=== PATIENT | male | born 1945 | race Caucasian/White ===

== ENCOUNTER 2017-05-14 08:24 | Emergency (ER) | payer OTHER ==
[~2017-05-14] VITALS: Ht 180.3 cm; Wt 75.7 kg
[~2017-05-14 08:24] MED LIST: ACET500T57 PO; ASPI81TA57 PO; ATOR-26 PO; CALC625T4 PO; CRD200 PO; GLC/500 PO; LSN40 PO; OMEP20CA9 PO; WARF5TAB90 PO
[2017-05-14 08:28] VITALS: TEMP 36.6; O2SAT 100; Ht 180.3 cm; Wt 75.7 kg
[2017-05-14] MEDS ORDERED: AMIO0.1T PO (08:35)
[2017-05-14] MEDS ORDERED: ASPI81TA28 PO (08:35)
[2017-05-14] MEDS ORDERED: SODIUM CHLORIDE 0.9% 1000ML 1,000 ML IV STA (08:47)
--- NOTE | 2017-05-14 08:54 | EMERGENCY ROOM VISIT NOTE ---
History First contact with patient: 08:37 Chief Complaint: SYNCOPE Stated Complaint: SYNCOPE Nursing Triage Summary: Pt arrives via ALS. Pt was standing in line for food at [facility], had a syncopal event with fall to the floor. Denies injury. Pt did not eat yet nor have his a.m. medications. Hx of Afib. BSG 93. The [facility] did orthostats with laying of BP 104/50, HR 60, sit BP 98/55 HR 62, stand BP 72/46 HR 63. Denies complaints of headache or dizziness. History of Present Illness The patient is a 72 year old male who presents to the Emergency Room from [facility] with complaints of a syncopal episode this morning about 7 AM. Patient was standing in line for breakfast when the episode occurred, he states he felt dizzy and then started to fall to the floor and one of his friends caught him. He denies hitting his head or any injury. He does state that he lost consciousness for a few seconds, no seizure-like activity. Patient has not had anything to eat and has not taken his mooring medications. He is a diabetic, reported blood sugar of 93 at the [facility]. They also noted orthostatic hypotension at the [facility], which is why he was sent to the emergency department. Patient denies any recent fevers or chills or any other illness, denies nausea or vomiting, diarrhea, abdominal pain, chest pain, shortness of breath, palpitations. Review of Systems A complete 10 point review of systems was reviewed with the patient with pertinent positives and negatives as per history of present illness. All else were negative. Past Medical/Surgical History Medical Problems: (1) Diabetes Family History FH: heart disease Social History Smoking Status: Current Every Day Smoker Alcohol Use: none Drug Use: none Marital Status: single Housing Status: other Occupation Status: unemployed Current/Historical Medications Scheduled Acetaminophen (Acetaminophen), 1,000 MG PO TID Amiodarone Hcl (Amiodarone Hcl), 100 MG PO DAILY Aspirin (Aspirin Ec), 81 MG PO DAILY Atorvastatin (Lipitor), 80 MG PO HS Lisinopril (Lisinopril), 40 MG PO DAILY Metformin Hcl (Glucophage), 500 MG PO BID Omeprazole (Prilosec), 20 MG PO DAILY Warfarin Sodium (Coumadin), 5 MG PO HS Physical Exam Vital Signs Date Time Temp Pulse Resp B/P (MAP) Pulse Ox O2 Delivery O2 Flow Rate FiO2 05/14/17 12:57 78 17 152/82 99 05/14/17 11:39 05/14/17 11:32 60 17 157/74 99 64 167/78 78 152/82 05/14/17 09:51 62 15 140/71 99 Room Air 05/14/17 08:39 58 05/14/17 08:28 100 Room Air 05/14/17 08:28 36.6 57 13 141/80 100 Room Air Physical Exam CONSTITUTIONAL: No acute distress. Dehydrated. Well appearing and well nourished. Alert and oriented X 4 with normal affect. HEENT: Normocephalic, atraumatic. Pupils equal, round and reactive to light, EOMI. TMs normal. Pharynx normal. Dry mucous membranes. Poor dentition. NECK: Supple, full active range of motion without discomfort. RESPIRATORY: Clear to auscultation bilaterally with no wheezing, crackles, rhonchi or stridor. Equal expansion bilaterally. CARDIOVASCULAR: Regular rate and rhythm with no murmurs, rubs or gallops. Normal peripheral perfusion. No edema. GASTROINTESTINAL: Soft, nontender, nondistended. Bowel sounds present in all quadrants. MUSCULOSKELETAL: Full range of motion of all joints without discomfort. INTEGUMENTARY: No rash or other significant dermatologic conditions noted. NEUROLOGIC: Cranial nerves II-XII grossly intact. No focal neurologic deficits noted. Medical Decision & Procedures ER Provider Diagnostic Interpretation: CHEST ONE VIEW PORTABLE CLINICAL HISTORY: 72 years-old Male presenting with EVALUATE ALTERED MENTAL STATUS/WEAKNESS. TECHNIQUE: Portable upright AP view of the chest was obtained. COMPARISON: 09/25/2015. FINDINGS: Atherosclerosis of aortic arch. Cardiac silhouette normal in size. Lungs and pleural spaces clear. Degenerative changes of the spine. Radiodensity projecting over the right axilla not clearly present on prior exam and of uncertain etiology. Upper abdomen normal. IMPRESSION: 1. No acute cardiopulmonary disease. 2. Radiodensity projecting over the right axilla not clearly present on prior exam or this may be external to the patient. Correlate clinically. Laboratory Results 05/14/17 09:07 Red Blood Count 4.32, Mean Corpuscular Volume 91.4, Mean Corpuscular Hemoglobin 31.0, Mean Corpuscular Hemoglobin Concent 33.9, Mean Platelet Volume 10.1, Neutrophils (%) (Auto) 82.6, Lymphocytes (%) (Auto) 9.8, Monocytes (%) (Auto) 5.7, Eosinophils (%) (Auto) 1.3, Basophils (%) (Auto) 0.2, Neutrophils # (Auto) 8.63, Lymphocytes # (Auto) 1.02, Monocytes # (Auto) 0.59, Eosinophils # (Auto) 0.14, Basophils # (Auto) 0.02 05/14/17 09:07 Test 05/14/17 08:45 05/14/17 09:07 05/14/17 09:50 Bedside Glucose 90 mg/dl (70-99) White Blood Count 10.44 K/uL (4.8-10.8) Red Blood Count 4.32 M/uL (4.7-6.1) Hemoglobin 13.4 g/dL (14.0-18.0) Hematocrit 39.5 % (42-52) Mean Corpuscular Volume 91.4 fL (80-100) Mean Corpuscular Hemoglobin 31.0 pg (25-34) Mean Corpuscular Hemoglobin Concent 33.9 g/dl (32-36) Platelet Count 292 K/uL (130-400) Mean Platelet Volume 10.1 fL (7.4-10.4) Neutrophils (%) (Auto) 82.6 % Lymphocytes (%) (Auto) 9.8 % Monocytes (%) (Auto) 5.7 % Eosinophils (%) (Auto) 1.3 % Basophils (%) (Auto) 0.2 % Neutrophils # (Auto) 8.63 K/uL (1.4-6.5) Lymphocytes # (Auto) 1.02 K/uL (1.2-3.4) Monocytes # (Auto) 0.59 K/uL (0.11-0.59) Eosinophils # (Auto) 0.14 K/uL (0-0.5) Basophils # (Auto) 0.02 K/uL (0-0.2) RDW Standard Deviation 46.2 fL (36.4-46.3) RDW Coefficient of Variation 13.8 % (11.5-14.5) Immature Granulocyte % (Auto) 0.4 % Immature Granulocyte # (Auto) 0.04 K/uL (0.00-0.02) Prothrombin Time 27.9 SECONDS (9.0-12.0) Prothromb Time International Ratio 2.5 (0.9-1.1) Anion Gap 5.0 mmol/L (3-11) Est Creatinine Clear Calc Drug Dose 101.6 ml/min Estimated GFR () 109.4 Estimated GFR (Non- 94.4 BUN/Creatinine Ratio 16.3 (10-20) Calcium Level 8.6 mg/dl (8.5-10.1) Total Bilirubin 0.8 mg/dl (0.2-1) Direct Bilirubin 0.2 mg/dl (0-0.2) Aspartate Amino Transf (AST/SGOT) 13 U/L (15-37) Alanine Aminotransferase (ALT/SGPT) 18 U/L (12-78) Alkaline Phosphatase 89 U/L (45-117) Troponin I < 0.015 ng/ml (0-0.045) Total Protein 6.9 gm/dl (6.4-8.2) Albumin 3.2 gm/dl (3.4-5.0) Thyroid Stimulating Hormone (TSH) 2.410 uIu/ml (0.300-4.500) Urine Color DK YELLOW Urine Appearance CLEAR (CLEAR) Urine pH 8.5 (4.5-7.5) Urine Specific [place] 1.018 (1.000-1.030) Urine Protein 2+ (NEG) Urine Glucose (UA) TRACE (NEG) Urine Ketones NEG (NEG) Urine Occult Blood NEG (NEG) Urine Nitrite NEG (NEG) Urine Bilirubin NEG (NEG) Urine Urobilinogen POS (NEG) Urine Leukocyte Esterase TRACE (NEG) Urine WBC (Auto) 5-10 /hpf (0-5) Urine RBC (Auto) 0-4 /hpf (0-4) Urine Hyaline Casts (Auto) 5-10 /lpf (0-5) Urine Epithelial Cells (Auto) >30 /lpf (0-5) Urine Bacteria (Auto) 1+ (NEG) Urine Renal Epithelial Cells /lpf (0-5) Urine Pathogenic Casts 0-3 GRANULAR CASTS /lpf (0) Urine Mucus PRESENT (NONE PRSENT) Medications Administered Medications (Trade) Dose Ordered Sig/Aby Route Start Time Stop Time Status Last Admin Dose Admin Sodium Chloride 1,000 ml @ 999 mls/hr Q1H1M STAT IV 05/14/17 08:47 05/14/17 09:47 DC 05/14/17 09:12 999 MLS/HR ECG Indication: syncope Rhythm: sinus bradycardia Findings: T-wave inversion (Inferior) Comparison ECG Date: nonspecific T-wave inversion in the inferior leads is a change from previous EKG of 09/26/2015 Medical Decision CC: Patient presenting with complaint of syncope Interpretation of Labs: No leukocytosis, stable anemia, no significant electrolyte abnormalities, normal renal function, normal liver enzymes. Therapeutic INR. Normal TSH. Negative troponin. UA appears to be contaminated , urine culture pending. Differential Diagnosis: Includes, but not limited to orthostatic hypotension, vasovagal syncope, dehydration, electrolyte abnormality, anemia, acute MO, among others. Medication Reconciliation: I attest that I have personally reviewed the patient' s current medication list. Vital signs review: I reviewed the patient's vital signs and interpret them as follows: T: Afebrile; BP: Hypotensive; HR: Within normal limits; RR: Within normal limits; Pulse Ox: Within normal limits on room air. Blood pressure screening: The patient was found to have an low blood pressure initially, improved to a normal blood pressure and then became hypertensive while in the ED. Patient was referred to their primary care provider for recheck and further treatment of blood pressure Summary: Patient was evaluated at bedside, history of physical exam performed. Alert and oriented, no acute distress, resting comfortably in the stretcher with 2 guards at bedside. Patient denies any complaints at this time, specifically no chest pain, shortness of breath, palpitations, or dizziness. She does appear moderately dehydrated with dry mucous membranes and poor skin turgor. He does admit that he has not always been eating and drinking the best. He has not yet had anything to eat or drink today and has not had any of his morning medications. He was notably orthostatic at the time of his syncopal episode her record from the [facility]. EKG reviewed at bedside, no acute ischemic changes noted. Orders were placed at bedside for labs, UA, EKG, chest x-ray, IV fluids for hydration. Patient discussed with Dr. Rizzo, who agrees with my assessment and plan. Labs are reviewed as above, no significant abnormalities. Negative troponin. Patient reassessed multiple times throughout ED stay, he remained well- appearing with no complaints and states he feels much better after receiving IV fluids and something to eat and drink. Orthostatic vital signs have resolved and he is now slightly hypertensive. Patient was updated on all results and plan for discharge. He was instructed to follow closely with [facility]. He verbalized understanding. He was also given strict return precautions should any of his symptoms recur or worsen, he verbalized understanding. Patient was discharged in stable [facility] in the custody of the 2 guards that came with him. Impression Primary Impression: Syncope Departure Information Dispostion Home / Self-Care Condition GOOD Referrals Tyler OVIEDO (PCP) Patient Instructions ED Dehydration, ED Hypotension Orthostatic, My [facility] Additional Instructions You have been treated in the Emergency Department today for Dehydration. Laboratory results have ruled out any emergent reasons for further evaluation or admission. It is important that you drink plenty of fluids to stay well hydrated. He should avoid fluids that are high in sugar, as this can affect your diabetes. You should follow-up with your Primary Care Provider in the next few days for reevaluation. You should discuss your blood pressure medication with your provider, as this may be causing your blood pressure to go low and causing you to pass out. Return to the Emergency Department if you have severe dizziness or passing out again, you develop chest pain, trouble breathing, palpitations, severe headache , weakness, confusion, fevers/chills, or decreased urination. Problem Qualifiers Primary Impression: Syncope Syncope type: unspecified Qualified Codes: R55 - Syncope and collapse
--- NOTE | 2017-05-14 09:24 | DIAGNOSTIC IMAGING REPORT ---
CHEST ONE VIEW PORTABLE CLINICAL HISTORY: 72 years-old Male presenting with EVALUATE ALTERED MENTAL STATUS/WEAKNESS. TECHNIQUE: Portable upright AP view of the chest was obtained. COMPARISON: 09/25/2015. FINDINGS: Atherosclerosis of aortic arch. Cardiac silhouette normal in size. Lungs and pleural spaces clear. Degenerative changes of the spine. Radiodensity projecting over the right axilla not clearly present on prior exam and of uncertain etiology. Upper abdomen normal. IMPRESSION: 1. No acute cardiopulmonary disease. 2. Radiodensity projecting over the right axilla not clearly present on prior exam or this may be external to the patient. Correlate clinically. Electronically signed by: Nitin Ribeiro M.D. 05/14/2017 9:22 AM Dictated Date/Time: 05/14/2017 9:21 AM
[2017-05-14 09:27] LABS: BASO % 0.2 %; BASO ABS # 0.02 K/uL (0-0.2); COMPLETE YES; EOS % 1.3 %; HEMATOCRIT 39.5 % (42-52); IG% 0.4 %; LYMPH % 9.8 %; LYMPH ABS # 1.02 K/uL (1.2-3.4); MEAN CELL VOLUME 91.4 fL (80-100); MEAN CORPUSCULAR HGB CONC 33.9 g/dl (32-36); MEAN PLATELET VOLUME 10.1 fL (7.4-10.4); MONO % 5.7 %; NEUT % 82.6 %; PLATELET COUNT 292 K/uL (130-400); RED BLOOD COUNT 4.32 M/uL (4.7-6.1); WHITE BLOOD COUNT 10.44 K/uL (4.8-10.8)
[2017-05-14 09:34] LABS: INR 2.5 (0.9-1.1); PROTHROMBIN TIME (PATIENT) 27.9 SECONDS (9.0-12.0)
[2017-05-14 09:53] LABS: BUN/CREATININE RATIO 16.3 (10-20); CALCIUM 8.6 mg/dl (8.5-10.1); CREATININE 0.71 mg/dl (0.60-1.40)
[2017-05-14 10:04] LABS: THYROID STIMULATING HORMONE 2.41 uIu/ml (0.300-4.500)
[2017-05-14 10:10] LABS: URINE APPEARANCE CLEAR (CLEAR); URINE BILIRUBIN NEG (NEG); URINE COLOR DK YELLOW; URINE EPITHELIAL CELL AUTO >30 /lpf (0-5); URINE NITRITE NEG (NEG); URINE PH 8.5 (4.5-7.5); URINE SPECIFIC GRAVITY 1.018 (1.000-1.030); UROBILINOGEN POS (NEG)
[2017-05-14 10:42] LABS: MANUAL MICROSCOPIC REQUIRED? NO; REVIEW REQ? YES; SULFASALICYLIC ACID POS (NEG)
[2017-05-14 10:45] LABS: URINE MUCUS PRESENT (NONE PRSENT); URINE PATH CASTS 0-3 GRANULAR CASTS /lpf (0)
[2017-05-14 12:57] VITALS: BP 152/82; PULSE 78; O2SAT 99
== END 2017-05-14 12:57 | disposition home or self-care (01) ==
LOC: EDBD 08:24 → C.EDB 08:25
DX: R55 Syncope and collapse (principal); E11.9 Type 2 diabetes mellitus without complications; I48.91 Unspecified atrial fibrillation; Z82.49 Family history of ischemic heart disease and other diseases of the circulatory system; F17.210 Nicotine dependence, cigarettes, uncomplicated; Z79.82 Long term (current) use of aspirin; Z79.899 Other long term (current) drug therapy; Z79.01 Long term (current) use of anticoagulants